=== PATIENT | female | born 1970 | race Caucasian/White ===

== ENCOUNTER → 2024-02-27 08:51 | Outpatient (REF) | payer OTHER, SELFPAY | LOC: HWWDC 08:51 | PROVIDERS: ATTENDING PHYSICIAN Obstetrics & Gynecology; FAMILY PHYSICIAN Nurse Practitioner | DX: Z12.31 Encounter for screening mammogram for malignant neoplasm of breast (principal) | CPT/HCPCS: 77063; 77067 ==

== ENCOUNTER → 2025-03-02 08:14 | Outpatient (REF) | payer OTHER, SELFPAY | LOC: WDC 08:14 | PROVIDERS: ATTENDING PHYSICIAN Obstetrics & Gynecology | DX: Z12.31 Encounter for screening mammogram for malignant neoplasm of breast (principal) | CPT/HCPCS: 77063; 77067 ==